=== PATIENT | female | born 1985 | race African-American/Black ===

== ENCOUNTER 2016-04-26 13:13 | Emergency (ER) | payer OTHER ==
[~2016-04-26] VITALS: Ht 154.9 cm; Wt 66.7 kg
[~2016-04-26 13:13] MED LIST: BACTRIM DS TAB1 EACH PO; CEPHALEXIN 500500 M1; CLEOCIN HCL300 MG; CLINDAMYCI75 MG/5 ML PO; IBUPROFEN 800800 M1 PO; IBUPROFEN 800800 MG PO; KEFLEX250 MG/5 M PO; KEFLEX500 M1 PO; KEFLEX500 MG; KEFLEX500 MG PO; NOHOMEMEDICATIONS; NORCO 5-325 TA1 EACH PO; PERCOCET 5-3251 EACH PO; PRENATAL; PYRIDIUM200 MG PO; VEETIDS 250MG250 M1 PO
[2016-04-26 13:14] VITALS: BP 101/61
[2016-04-26] MEDS ORDERED: ALIVE WOMEN'S1 EAC1 PO (13:19)
[2016-04-26 13:43] LABS: URINE BILIRUBIN NEGATIVE (Negative); URINE BLOOD 1+ (Negative); URINE COLOR YELLOW; URINE GLUCOSE-RANDOM* NEGATIVE (Negative); URINE KETONES NEGATIVE (Negative); URINE NITRITE NEGATIVE (Negative); URINE PROTEIN (DIPSTICK) 1+ (Negative); URINE SPECIFIC GRAVITY 1.015 (1.003-1.035); URINE UROBILINOGEN 0.2 E.U./dl (0.2-1.0)
[2016-04-26 13:49] LABS: AMORPHOUS PHOSPHATES Moderate /LPF (None Seen); BACTERIA 1-9 Few /HPF (None Seen); CASTS None Seen /LPF (None Seen); SQUAMOUS None Seen /LPF (0-3); URINE RBC 0-2 Rare /HPF (0-2); URINE WBC 6-15 Few /HPF (0-5)
[2016-04-26] MEDS ORDERED: KEFLEX500 MG PO (13:57)
== END 2016-04-26 14:21 | disposition home or self-care (01) ==
LOC: ER 13:13
PROVIDERS: Physician Assistant
DX: N39.0 Urinary tract infection, site not specified (principal); Z90.710 Acquired absence of both cervix and uterus

== ENCOUNTER 2016-10-14 11:32 | Emergency (ER) | payer OTHER ==
[~2016-10-14] VITALS: Ht 154.9 cm; Wt 71.2 kg
[~2016-10-14 11:32] MED LIST changes: +ALIVE WOMEN'S1 EAC1 PO
[2016-10-14] MEDS ORDERED: ZANTAC 150MG T150 MG PO (11:58)
[2016-10-14] MEDS ORDERED: BENTYL 20 MG TA20 M1 PO (11:59)
[2016-10-14 12:09] LABS: URINE BILIRUBIN NEGATIVE (Negative); URINE BLOOD NEGATIVE (Negative); URINE COLOR YELLOW; URINE GLUCOSE-RANDOM* NEGATIVE (Negative); URINE KETONES NEGATIVE (Negative); URINE LEUKOCYTES-REFLEX NEGATIVE (Negative); URINE PROTEIN (DIPSTICK) NEGATIVE (Negative); URINE UROBILINOGEN 0.2 E.U./dl (0.2-1.0)
[2016-10-14 12:19] LABS: ABSOLUTE NEUTROPHILS 3.8 thou/uL (1.4-8.2); BASOPHILS 0.5 % (0.0-2.0); EOSINOPHILS 1.4 % (0.0-3.0); HEMOGLOBIN 12.6 gm/dL (12.0-15.0); LYMPHOCYTES 28.4 % (24.0-44.0); MCH 30.3 pg (26.0-34.0); MCHC 34.1 g/dL (28.0-37.0); MCV 88.7 fL (80.0-100.0); MONOCYTES 8.6 % (1.0-8.0); PLATELET COUNT 209 thou/uL (150-400); POLYS 61.1 % (36.0-66.0); RBC 4.17 mil/uL (4.20-5.00); RDW 13.1 % (10.5-14.5); WBC 6.3 thou/uL (4.0-11.0)
[2016-10-14 12:21] LABS: MANUAL DIFF NO
[2016-10-14 12:26] LABS: CALCIUM 8.8 mg/dL (8.5-10.1); CREATININE 0.6 mg/dL (0.6-1.0); POTASSIUM 3.8 mmol/L (3.5-5.1)
[2016-10-14 12:30] LABS: ALBUMIN 3.7 g/dL (3.4-5.0); TOTAL BILIRUBIN 0.6 mg/dL (<0.1-1.0); TOTAL PROTEIN 7.4 g/dL (6.4-8.2)
[2016-10-14] MEDS ORDERED: SENOKOT-S1 TA1 PO (12:54)
[2016-10-14 14:21] VITALS: BP 109/65
== END 2016-10-14 14:22 | disposition home or self-care (01) ==
LOC: ER 11:32
PROVIDERS: Physician Assistant
DX: K59.00 Constipation, unspecified (principal); Z90.710 Acquired absence of both cervix and uterus; Z90.49 Acquired absence of other specified parts of digestive tract

== ENCOUNTER 2017-03-28 18:13 | Emergency (ER) | payer OTHER ==
[~2017-03-28] VITALS: Ht 154.9 cm; Wt 72.6 kg
[~2017-03-28 18:13] MED LIST changes: +BENTYL 20 MG TA20 M1 PO; +SENOKOT-S1 TA1 PO; +ZANTAC 150MG T150 MG PO
[2017-03-28 18:33] LABS: URINE BILIRUBIN NEGATIVE (Negative); URINE BLOOD NEGATIVE (Negative); URINE CLARITY CLEAR; URINE COLOR YELLOW; URINE GLUCOSE-RANDOM* NEGATIVE (Negative); URINE KETONES NEGATIVE (Negative); URINE LEUKOCYTES-REFLEX NEGATIVE (Negative); URINE NITRITE-REFLEX NEGATIVE (Negative); URINE PROTEIN (DIPSTICK) NEGATIVE (Negative); URINE SPECIFIC GRAVITY <= 1.005 (1.005-1.035); URINE UROBILINOGEN 0.2 E.U./dl (0.2-1.0)
[2017-03-28 18:38] LABS: ABSOLUTE NEUTROPHILS 3.4 thou/uL (1.4-8.2); BASOPHILS 0.8 % (0.0-2.0); HEMATOCRIT 23.8 % (37.0-47.0); HEMOGLOBIN 7.3 gm/dL (12.0-15.0); LYMPHOCYTES 36.7 % (24.0-44.0); MCH 22.2 pg (26.0-34.0); MCHC 30.7 g/dL (28.0-37.0); MCV 72.5 fL (80.0-100.0); MONOCYTES 8.3 % (1.0-8.0); PLATELET COUNT 281 thou/uL (150-400); POLYS 52.2 % (36.0-66.0); RBC 3.28 mil/uL (4.20-5.00); RDW 16.9 % (10.5-14.5); WBC 6.6 thou/uL (4.0-11.0)
[2017-03-28 18:49] LABS: CALCIUM 8.3 mg/dL (8.5-10.1); CREATININE 0.6 mg/dL (0.6-1.0); POTASSIUM 3.6 mmol/L (3.5-5.1)
[2017-03-28 18:55] LABS: ALBUMIN 3.4 g/dL (3.4-5.0); TOTAL BILIRUBIN 0.2 mg/dL (<0.1-1.0); TOTAL PROTEIN 6.8 g/dL (6.4-8.2)
[2017-03-28 19:38] LABS: ANISOCYTOSIS 1+; HYPOCHROMASIA 1+
[2017-03-28 19:39] LABS: MICROCYTES 1+
[2017-03-28] MEDS ORDERED: PROTONIX 20 MG20 M1 PO (21:12)
[2017-03-28 21:15] VITALS: BP 131/74
[2017-04-04] MEDS ORDERED: ZOFRAN ODT4 MG PO (09:31)
[2017-04-04] MEDS ORDERED: BENTYL 20 MG TA20 M1 PO (09:31)
[2017-04-04] MEDS ORDERED: METAMUCIL0.4 GM PO (09:31)
== END 2017-03-28 21:48 | disposition home or self-care (01) ==
LOC: ER 18:13
PROVIDERS: Physician Assistant
DX: K92.2 Gastrointestinal hemorrhage, unspecified (principal); D64.9 Anemia, unspecified; Z90.710 Acquired absence of both cervix and uterus

== ENCOUNTER 2017-04-04 20:59 | Observation (INO) | payer OTHER ==
[~2017-04-04] VITALS: Ht 154.9 cm; Wt 69.4 kg
--- NOTE | ~2017-04-04 | HC ---
[facility] [place] [address] CONSULTATION Name: SANTIAGO MERAZ Room #: 426-P DARRYL Pritchett#: [id number] Admission: 04/04/17 Attend Phys: Abe Paula MD Discharge: 04/05/17 Date of : 85 Report #: [id number] THIS REPORT FOR: //name// CC: Abe hawk MD PRIMARY CARE DATE OF SERVICE: 04/05/2017 HISTORY OF PRESENT ILLNESS: The patient is a 31-year-old female who was admitted for intractable nausea and vomiting. She actually has a history of anemia. Her hemoglobin here is 8.0 and she was seen in the emergency room recently for abdominal pain. This was on March 28. At that time, she was not having nausea and vomiting, was having abdominal pain only. She described at that time the pain being diffuse. She also has a history of constipation. She has had a previous hysterectomy and cholecystectomy. She denies any obvious bright red blood per rectum. She had a rectal swab at that time that was Hemoccult positive. A CT scan of the abdomen and pelvis was performed on March 28, which showed retained fecal matter throughout the colon compatible with constipation. A small fat containing umbilical hernia. No acute processes. She underwent an EGD and colonoscopy by my partner, Dr. Greg Wall on Wednesday and apparently had a gastric polyp that was removed and internal hemorrhoids, but otherwise negative. She states she began having nausea and vomiting on Wednesday and this continued throughout the weekend and therefore was evaluated in the emergency room for nausea and vomiting and admitted. A KUB yesterday showed no abnormalities. She denies nausea and vomiting at this time. She is tolerating clear liquids and would like to advance her diet. Again, she denies any significant blood in her stools. I do not have the EGD and colonoscopy report available at this time. There is a family history in a half brother with colon cancer. She denies any fevers or chills. No chest pain or shortness of breath. No rashes. PAST MEDICAL HISTORY: Anemia, constipation, previous urinary tract infection, previous hysterectomy and cholecystectomy, EGD and colonoscopy were performed 3 days ago. ALLERGIES: No known drug allergies. MEDICATIONS AT HOME: Bentyl, Zofran p.r.n., Metamucil, but this was just started 2 days ago. REVIEW OF SYSTEMS: As per HPI. [address] [address] CONSULTATION Name: SANTIAGO MERAZCOVASILE Room #: 426-P [facility].#: [id number] Admission: 04/04/17 Attend Phys: Abe Paula MD Discharge: 04/05/17 Date of : 85 Report #: [id number] SOCIAL HISTORY: She denies any tobacco or alcohol use. FAMILY HISTORY: Positive for colon cancer in a half brother. PHYSICAL EXAMINATION: VITAL SIGNS: Temperature is 98.7, pulse 84, blood pressure 89/39, and respiratory rate is 18. GENERAL: She is alert and oriented x 3, in no acute distress. HEENT: Sclerae nonicteric. Oropharynx clear. NECK: Supple without lymphadenopathy. CARDIOVASCULAR: Regular rate and rhythm. CHEST: Clear to auscultation bilaterally. ABDOMEN: Soft. She is nontender, nondistended, normoactive bowel sounds. EXTREMITIES: No cyanosis, clubbing or edema. LABS: Sodium 140, potassium 3.7, chloride 106, bicarb 26, BUN 7, creatinine 0.6, AST 17, lipase 65, total bili 0.3, alk phos 75, ALT is 20, total protein 7.2, albumin 3.7. WBC is 7.3, hemoglobin is 8.0 with an MCV of 69.6, and platelet count is 282. UCG is negative. ASSESSMENT AND PLAN: 1. Nausea and vomiting, etiology is unclear at this time. The patient just had an EGD and colonoscopy and was essentially negative per the patient. It appears she had a gastric polyp that was removed. I do not believe this would cause nausea and vomiting. Her constipation may be playing a role. She states she only has a bowel movement once a week. A recent CAT scan shows a large amount of stool within the colon. Therefore, I would recommend daily MiraLax and possibly increase the dose, may need to consider Linzess or Amitiza in the future as well. She is not having nausea or vomiting at this time, therefore we will advance the diet. If she is doing well, we will have her discharged to home. 2. Anemia, microcytic, again just had an EGD and colonoscopy that did not show stigmata of bleeding apparently, may need further workup. She has a history of hysterectomy and no menses. Thank you for allowing me to participate in her care. <ELECTRONICALLY SIGNED> By: Julius Pope MD 04/06/17 1244 [id number] Julius Pope MD /nt
[~2017-04-04 20:59] MED LIST changes: +METAMUCIL0.4 GM PO; +PROTONIX 20 MG20 M1 PO; +ZOFRAN ODT4 MG PO
[2017-04-04 21:08] VITALS: BP 102/58
[2017-04-04 22:13] LABS: ABSOLUTE NEUTROPHILS 5.6 thou/uL (1.4-8.2); BASOPHILS 0.5 % (0.0-2.0); EOSINOPHILS 0.9 % (0.0-3.0); HEMATOCRIT 25.3 % (37.0-47.0); LYMPHOCYTES 14.6 % (24.0-44.0); MCH 21.9 pg (26.0-34.0); MCHC 31.5 g/dL (28.0-37.0); MCV 69.6 fL (80.0-100.0); MONOCYTES 6.9 % (1.0-8.0); PLATELET COUNT 282 thou/uL (150-400); POLYS 77.1 % (36.0-66.0); RBC 3.63 mil/uL (4.20-5.00); RDW 17.2 % (10.5-14.5); WBC 7.3 thou/uL (4.0-11.0)
[2017-04-04 22:19] LABS: CALCIUM 8.7 mg/dL (8.5-10.1); CREATININE 0.6 mg/dL (0.6-1.0); MANUAL DIFF NO; POTASSIUM 3.7 mmol/L (3.5-5.1)
[2017-04-04 22:25] LABS: ALBUMIN 3.7 g/dL (3.4-5.0); TOTAL BILIRUBIN 0.3 mg/dL (<0.1-1.0); TOTAL PROTEIN 7.2 g/dL (6.4-8.2)
[2017-04-04 22:47] VITALS: BP 120/78
[2017-04-04 23:43] VITALS: BP 126/70
[2017-04-05 03:07] VITALS: BP 105/64
[2017-04-05 07:22] VITALS: BP 89/39
[2017-04-05 14:47] VITALS: BP 89/39
== END 2017-04-05 15:24 | disposition home or self-care (01) ==
LOC: ER 20:59 → EROBS 21:57 → 4E 23:02
PROVIDERS: Emergency Medicine
DX: R10.9 Unspecified abdominal pain (principal); R11.2 Nausea with vomiting, unspecified; K46.9 Unspecified abdominal hernia without obstruction or gangrene; D50.9 Iron deficiency anemia, unspecified